=== PATIENT | female | born 2000 | race Two or more races ===

== ENCOUNTER 2024-10-03 11:30 | Emergency (ER) | payer SELFPAY ==
[~2024-10-03] VITALS: Ht 185.4 cm; Wt 109.2 kg
[2024-10-03 11:40] VITALS: TEMP 98.2
[2024-10-03 12:18] LABS: COVID AG,FIA SOURCE NASAL SWAB
[2024-10-03 12:25] LABS: BASOPHILS % (AUTO) 0.3 % (0.0-2.0); EOSINOPHILS % (AUTO) 0.6 % (1.0-6.0); HEMATOCRIT 38.4 % (36-46); HEMOGLOBIN 12.7 g/dL (12.0-16.0); LYMPHOCYTES # (AUTO) 2.4 K/uL (1.0-4.8); LYMPHOCYTES % (AUTO) 19.8 % (22.0-44.0); MEAN CORPUSCULAR HEMOGLOBIN 30.6 pg (26.0-34.0); MEAN CORPUSCULAR HGB CONC 33.2 G/dL (31.0-37.0); MEAN CORPUSCULAR VOLUME 92 fL (80-100); MONOCYTES # (AUTO) 0.9 K/uL (0.1-1.0); MONOCYTES % (AUTO) 7.4 % (2.0-9.0); NEUTROPHILS # (AUTO) 8.9 K/uL (1.8-7.7); NEUTROPHILS % (AUTO) 71.9 % (40.0-70.0); PLATELET COUNT (AUTO) 305 K/uL (150-450); RED BLOOD CELL COUNT(AUTO) 4.16 MIL/uL (4.00-5.20); RED CELL DISTRIBUTION WIDTH 13.3 % (11.5-14.5); WHITE BLOOD COUNT (AUTO) 12.4 K/uL (4.5-11.0)
[2024-10-03 12:29] LABS: ALCOHOL, BLOOD (SERUM) < 3 mg/dL (0-10)
[2024-10-03] MEDS: DiphenhydrAMINE HCL 25 MG CAPSULE PO ONE (12:41)
[2024-10-03] MEDS: LORazepam 2 MG TABLET PO ONE (12:41)
[2024-10-03] MEDS: HALOPERIDOL 5 MG TABLET PO ONE (12:41)
[2024-10-03 13:06] LABS: SARS-COV2 (COVID) ANTIGEN,FIA Negative (Negative)
[2024-10-03 13:13] LABS: ANION GAP 15 mmol/L (8-16); CALCIUM, TOTAL 9.3 mg/dL (8.8-10.5); CARBON DIOXIDE 23 mmol/L (22-29); CHLORIDE 103 mmol/L (98-107); CREATININE 0.71 mg/dL (0.60-1.30); GLOMERULAR FILTR. RATE CALC > 60 mL/min (>60); GLUCOSE,RANDOM 101 mg/dL (70-110); POTASSIUM 3.4 mmol/L (3.5-5.1); SODIUM SERUM 141 mmol/L (136-145); UREA NITROGEN, BLOOD 9 mg/dL (7-18)
[2024-10-03 15:40] VITALS: BP 124/82; PULSE 76; RESP 16; O2SAT 100
[2024-10-04] MEDS ORDERED: RISP-31 PO (14:34)
== END 2024-10-03 16:34 | disposition short-term general hospital (02) ==
LOC: EMS 11:30
DX: F25.9 Schizoaffective disorder, unspecified (principal); F41.9 Anxiety disorder, unspecified; F12.90 Cannabis use, unspecified, uncomplicated; F32.A Depression, unspecified; Z20.822 Contact with and (suspected) exposure to COVID-19; Z78.1 Physical restraint status
CPT/HCPCS: 99285; 87426; 80048; 85025; 36415; G0480

== ENCOUNTER 2024-10-04 11:16 | Inpatient (IN) | payer MEDICAID ==
[~2024-10-04] VITALS: Ht 172.7 cm; Wt 112.9 kg
[2024-10-04 11:36] LABS: PH,URINE DRUG SCREEN 6.5 (5.0-8.0)
[2024-10-04 11:42] VITALS: O2SAT 99
[2024-10-04 11:53] LABS: AMPHET/METH SCREEN,URINE NEGATIVE (NEGATIVE); BARBITURATE SCREEN, URINE NEGATIVE (NEGATIVE); BENZODIAZEPINES SCREEN,URINE NEGATIVE (NEGATIVE); CANNABINOID SCREEN,URINE POSITIVE (NEGATIVE); COCAINE SCREEN,URINE NEGATIVE (NEGATIVE); METHADONE SCREEN, URINE NEGATIVE (NEGATIVE); OPIATE SCREEN,URINE NEGATIVE (NEGATIVE); PHENCYCLIDINE SCREEN,URINE NEGATIVE (NEGATIVE)
[2024-10-04 11:58] LABS: COVID AG,FIA SOURCE NASAL SWAB
[2024-10-04 11:59] LABS: BASOPHILS % (AUTO) 0.3 % (0.0-2.0); EOSINOPHILS % (AUTO) 0.3 % (1.0-6.0); HEMATOCRIT 36.8 % (36-46); HEMOGLOBIN 12.3 g/dL (12.0-16.0); LYMPHOCYTES % (AUTO) 14.5 % (22.0-44.0); MEAN CORPUSCULAR HEMOGLOBIN 30.6 pg (26.0-34.0); MEAN CORPUSCULAR HGB CONC 33.5 G/dL (31.0-37.0); MEAN CORPUSCULAR VOLUME 92 fL (80-100); MONOCYTES # (AUTO) 0.9 K/uL (0.1-1.0); MONOCYTES % (AUTO) 6.3 % (2.0-9.0); NEUTROPHILS # (AUTO) 10.7 K/uL (1.8-7.7); NEUTROPHILS % (AUTO) 78.6 % (40.0-70.0); PLATELET COUNT (AUTO) 286 K/uL (150-450); RED BLOOD CELL COUNT(AUTO) 4.01 MIL/uL (4.00-5.20); RED CELL DISTRIBUTION WIDTH 13.3 % (11.5-14.5); WHITE BLOOD COUNT (AUTO) 13.6 K/uL (4.5-11.0)
[2024-10-04 12:14] LABS: ALCOHOL, URINE DRUG SCREEN NEGATIVE (NEGATIVE)
[2024-10-04 12:23] LABS: ANION GAP 10 mmol/L (8-16); CALCIUM, TOTAL 9.2 mg/dL (8.8-10.5); CARBON DIOXIDE 26 mmol/L (22-29); CHLORIDE 102 mmol/L (98-107); CREATININE 0.57 mg/dL (0.60-1.30); GLOMERULAR FILTR. RATE CALC > 60 mL/min (>60); GLUCOSE,RANDOM 105 mg/dL (70-110); POTASSIUM 3.5 mmol/L (3.5-5.1); SODIUM SERUM 138 mmol/L (136-145); UREA NITROGEN, BLOOD 9 mg/dL (7-18)
[2024-10-04 12:27] LABS: ALCOHOL, BLOOD (SERUM) < 3 mg/dL (0-10)
[2024-10-04 12:43] LABS: APPEARANCE,URINE CLEAR (CLEAR); BILIRUBIN,URINE NEGATIVE (NEGATIVE); COLOR,URINE COLORLESS (YELLOW); GLUCOSE, URINE (UA) NEGATIVE (NEGATIVE); KETONES,URINE NEGATIVE (NEGATIVE); LEUKOCYTE ESTERASE ,URINE NEGATIVE (NEGATIVE); NITRATE,URINE NEGATIVE (NEGATIVE); OCCULT BLOOD,URINE NEGATIVE (NEGATIVE); PH,URINE 6.5 (5.0-8.0); PROTEIN,URINE NEGATIVE (NEGATIVE); SPECIFIC GRAVITIY, URINE 1.005 (1.003-1.030); UROBILINOGEN,URINE <=1.0 mg/dL (<=1.0)
[2024-10-04 12:56] LABS: SARS-COV2 (COVID) ANTIGEN,FIA Negative (Negative)
[2024-10-04 13:17] LABS: BACTERIA,URINE None Seen /HPF (None Seen); RBC,URINE None Seen /HPF (0-2); SQUAMOUS EPITHELIAL CELL,UR None Seen /LPF (None Seen); WBC,URINE None Seen /HPF (0-5)
[2024-10-04] MEDS ORDERED: RISP-31 PO (14:34)
[2024-10-04] MEDS: ACETAMINOPHEN 500 MG TABLET PO ONE (15:36)
[2024-10-04] MEDS: FLUoxetine HCL 20 MG CAPSULE PO ONE (15:36)
[2024-10-04] MEDS: OMEPRAZOLE 20 MG CAPSULE PO ONE (15:36)
[2024-10-04 18:12] VITALS: BP 136/61; PULSE 98; RESP 18; TEMP 97.5; O2SAT 98
[2024-10-04] MEDS ORDERED: MAG HYDROX/ALUMINUM HYD/SIMETH ES 30 ML SUSPENSION UDCUP PO PRN (18:45)
[2024-10-04] MEDS ORDERED: PETROLATUM,WHITE 28 GM JELLY TP PRN (18:45)
[2024-10-04] MEDS ORDERED: ONDANSETRON 4 MG TABLET PO PRN (18:45)
[2024-10-04] MEDS ORDERED: IBUPROFEN 400 MG TABLET PO PRN (18:45)
[2024-10-04] MEDS ORDERED: GuaiFENesin/D-METHORPHAN [SUGAR-FREE] 200-20MG/10 ML SYRUP UDCUP PO PRN (18:45)
[2024-10-04] MEDS ORDERED: CloNIDine HCL 0.1 MG TABLET PO PRN (18:45)
[2024-10-04] MEDS ORDERED: ALBUTEROL SULFATE HFA 90 MCG/PUFF 8 GM INHALER IH PRN (18:45)
[2024-10-04] MEDS ORDERED: NICOTINE 14 MG/24 HOUR PATCH TD PRN (18:45)
[2024-10-04] MEDS ORDERED: LOPERAMIDE HCL 2 MG CAPSULE PO PRN (18:45)
[2024-10-04] MEDS: MAGNESIUM HYDROXIDE SUSPENSION 30 ML UDCUP PO PRN (18:59)
[2024-10-04 20:30] VITALS: RESP 16
[2024-10-05] MEDS: ZOLPIDEM TARTRATE 10 MG TABLET PO PRN (00:07)
[2024-10-05] MEDS: HALOPERIDOL 5 MG TABLET PO PRN (06:46)
[2024-10-05 08:47] VITALS: BP 137/79; PULSE 101; RESP 18; TEMP 97.3; O2SAT 98
[2024-10-05] MEDS: LORazepam 2 MG TABLET PO PRN (15:58)
[2024-10-05] MEDS ORDERED: FLUO-341 PO (16:13)
[2024-10-05] MEDS: RisperiDONE 1 MG TABLET PO SCH (20:13)
[2024-10-06 08:10] VITALS: BP 122/78; PULSE 100; RESP 16; TEMP 96.8; O2SAT 96
[2024-10-06 21:21] VITALS: BP 148/78; PULSE 91; RESP 20; TEMP 97.5; O2SAT 80
[2024-10-07] MEDS: DOCUSATE SODIUM 100 MG CAPSULE PO PRN (05:47)
[2024-10-07 08:14] VITALS: BP 121/71; PULSE 94; RESP 19; TEMP 97.6; O2SAT 97
[2024-10-07 08:25] LABS: BASOPHILS % (AUTO) 0.3 % (0.0-2.0); EOSINOPHILS % (AUTO) 0.4 % (1.0-6.0); HEMATOCRIT 37.1 % (36-46); HEMOGLOBIN 12.5 g/dL (12.0-16.0); LYMPHOCYTES # (AUTO) 1.2 K/uL (1.0-4.8); LYMPHOCYTES % (AUTO) 13.5 % (22.0-44.0); MEAN CORPUSCULAR HEMOGLOBIN 31.2 pg (26.0-34.0); MEAN CORPUSCULAR HGB CONC 33.8 G/dL (31.0-37.0); MEAN CORPUSCULAR VOLUME 93 fL (80-100); MONOCYTES # (AUTO) 0.5 K/uL (0.1-1.0); MONOCYTES % (AUTO) 5.5 % (2.0-9.0); NEUTROPHILS # (AUTO) 7.3 K/uL (1.8-7.7); NEUTROPHILS % (AUTO) 80.3 % (40.0-70.0); PLATELET COUNT (AUTO) 282 K/uL (150-450); RED BLOOD CELL COUNT(AUTO) 4.01 MIL/uL (4.00-5.20); RED CELL DISTRIBUTION WIDTH 13.3 % (11.5-14.5); WHITE BLOOD COUNT (AUTO) 9.1 K/uL (4.5-11.0)
[2024-10-07 08:41] LABS: HEMOGLOBIN A1C 5.4 % (3.8-5.6)
[2024-10-07 08:45] LABS: ALANINE AMINOTRANSFERASE 22 U/L (12-78); ALBUMIN 4.2 g/dL (3.4-5.0); ALKALINE PHOSPHATASE 60 U/L (46-116); ANION GAP 9 mmol/L (8-16); ASPARTATE AMINOTRANSFERASE 24 U/L (15-37); BILIRUBIN,TOTAL 0.5 mg/dL (0.1-1.0); CALCIUM, TOTAL 9.4 mg/dL (8.8-10.5); CARBON DIOXIDE 28 mmol/L (22-29); CHLORIDE 102 mmol/L (98-107); CHOL/HDL RATIO 1.8 (3.9-5.7); CHOLESTEROL 112 mg/dL (131-200); CREATININE 0.72 mg/dL (0.60-1.30); GLOMERULAR FILTR. RATE CALC > 60 mL/min (>60); GLUCOSE,RANDOM 126 mg/dL (70-110); HDL CHOLESTEROL 62 mg/dL (40-60); LDL CHOL (CALC.) 37 mg/dL (0-130); POTASSIUM 3.7 mmol/L (3.5-5.1); SODIUM SERUM 139 mmol/L (136-145); TOTAL PROTEIN, SERUM 8.1 g/dL (6.4-8.2); TRIGLYCERIDES 63 mg/dL (15-150); UREA NITROGEN, BLOOD 10 mg/dL (7-18)
[2024-10-07 09:18] LABS: FREE T4 (FREE THYROXINE) 1.19 ng/dL (0.76-1.46); THYROID STIMULATING HORMONE 0.62 uIU/mL (0.36-3.74)
[2024-10-08 00:20] VITALS: BP 129/82; PULSE 88; RESP 19; TEMP 97.6
[2024-10-08] MEDS: ACETAMINOPHEN 325 MG TABLET PO PRN (00:24)
[2024-10-08 08:14] VITALS: BP 137/76; PULSE 100; RESP 18; TEMP 98; O2SAT 96
[2024-10-08] MEDS: INFLUENZA VIRUS VACCINE TVS (6MO+) 2024-25/PF 45 MCG/0.5 ML SYRINGE IM. ONE (12:49)
[2024-10-08 20:20] VITALS: BP 128/79; PULSE 91; RESP 18; TEMP 98; O2SAT 96
[2024-10-09 08:17] VITALS: BP 127/73; PULSE 94; RESP 18; TEMP 97.1; O2SAT 97
[2024-10-09 20:36] VITALS: BP 115/66; PULSE 90; RESP 18; TEMP 97.1; O2SAT 98
[2024-10-10 08:14] VITALS: RESP 16
[2024-10-10] MEDS: RisperiDONE 2 MG TABLET PO SCH (20:13)
[2024-10-10 21:07] VITALS: BP 127/77; PULSE 91; RESP 16; TEMP 97.3; O2SAT 98
[2024-10-11 08:24] VITALS: BP 122/73; PULSE 99; RESP 17; TEMP 98; O2SAT 99
[2024-10-11 20:12] VITALS: BP 102/58; PULSE 94; RESP 17; TEMP 97.7; O2SAT 95
[2024-10-12 08:23] VITALS: RESP 16
[2024-10-12 20:24] VITALS: BP 119/81; PULSE 99; RESP 17; TEMP 97.8; O2SAT 98
[2024-10-13 08:13] VITALS: BP 125/76; PULSE 100; RESP 18; TEMP 97.9; O2SAT 100
[2024-10-13 20:37] VITALS: BP 106/66; PULSE 86; RESP 16; TEMP 98; O2SAT 98
[2024-10-14 08:25] VITALS: BP 124/74; PULSE 100; RESP 18; TEMP 98; O2SAT 98
[2024-10-14] MEDS: LORazepam 2 MG TABLET PO PRN (14:49)
[2024-10-14 20:17] VITALS: BP 122/85; PULSE 105; RESP 17; TEMP 97.8; O2SAT 97
[2024-10-14] MEDS: ZOLPIDEM TARTRATE 10 MG TABLET PO PRN (20:54)
[2024-10-15 09:33] VITALS: BP 117/75; PULSE 100; RESP 16; TEMP 97
[2024-10-15 20:09] VITALS: BP 125/87; PULSE 98; RESP 16; TEMP 97.8; O2SAT 100
[2024-10-16 08:18] VITALS: BP 129/83; PULSE 100; RESP 18; TEMP 97; O2SAT 99
[2024-10-16] MEDS ORDERED: RISP-32 PO ×2 (10:56→11:46)
== END 2024-10-16 16:35 | disposition home or self-care (01) | DRG 750 ==
LOC: EMS 11:16 → B3A 14:20
PROVIDERS: ADMIT Psychiatry & Neurology Child & Adolescent Psychiatry; ATTEND Psychiatry & Neurology Child & Adolescent Psychiatry
PROC: GZ56ZZZ Individual Psychotherapy, Supportive (ICD-10-PCS; principal; 2024-10-05)
PROC: GZ52ZZZ Individual Psychotherapy, Cognitive (ICD-10-PCS; 2024-10-05)
PROC: GZHZZZZ Group Psychotherapy (ICD-10-PCS; 2024-10-05)
DX: F25.9 Schizoaffective disorder, unspecified (principal); D72.829 Elevated white blood cell count, unspecified; F12.90 Cannabis use, unspecified, uncomplicated; F32.A Depression, unspecified; F41.9 Anxiety disorder, unspecified; R73.9 Hyperglycemia, unspecified; I10 Essential (primary) hypertension; G47.00 Insomnia, unspecified; Z20.822 Contact with and (suspected) exposure to COVID-19; Z79.899 Other long term (current) drug therapy
CPT/HCPCS: 80048; 80053; 80061; 80307; 81001; 83036; 84439; 84443; 84703; 85025; 90686; 99285; G0480